=== PATIENT | female | born 1985 | race American Indian/Alaskan Native ===

== ENCOUNTER 2021-12-15 13:30 | Emergency (ER) | payer SELFPAY ==
[2021-12-15 14:15] VITALS: BP 108/61
== END 2021-12-16 00:27 | disposition left against medical advice (07) ==
LOC: ED 13:30
DX: R07.81 Pleurodynia (principal); M79.605 Pain in left leg; Z53.21 Procedure and treatment not carried out due to patient leaving prior to being seen by health care provider